=== PATIENT | female | born 1955 | race Caucasian/White ===

== ENCOUNTER → 2016-07-30 | Outpatient (CLI) | payer BC | LOC: MC.RAD 11:11 | DX: Z12.31 Encounter for screening mammogram for malignant neoplasm of breast (principal) ==

== ENCOUNTER → 2017-10-04 | Outpatient (CLI) | payer BC | LOC: MC.RAD 09-12 13:40 | DX: Z12.31 Encounter for screening mammogram for malignant neoplasm of breast (principal) ==

== ENCOUNTER → 2018-10-30 | Outpatient (CLI) | payer BC | LOC: MC.RAD 08:00 | DX: Z12.31 Encounter for screening mammogram for malignant neoplasm of breast (principal) ==

== ENCOUNTER → 2020-01-13 | Outpatient (CLI) | payer BC | LOC: MC.RAD 14:32 | DX: Z12.31 Encounter for screening mammogram for malignant neoplasm of breast (principal); N64.89 Other specified disorders of breast ==

== ENCOUNTER → 2020-01-19 | Outpatient (CLI) | payer BC | LOC: MC.RAD 13:50 | DX: Z12.31 Encounter for screening mammogram for malignant neoplasm of breast (principal) ==

== ENCOUNTER → 2021-01-20 | Outpatient (CLI) | payer BC | LOC: MC.RAD 07:30 | DX: Z12.31 Encounter for screening mammogram for malignant neoplasm of breast (principal) ==

== ENCOUNTER 2021-06-01 09:30 | Outpatient (RCR) | payer MEDICARE, OTHER, BC | END 2021-06-01 13:47 | disposition home or self-care (01) | LOC: MKS.ESL.PT 09:30 | DX: M47.26 Other spondylosis with radiculopathy, lumbar region (principal); M47.817 Spondylosis without myelopathy or radiculopathy, lumbosacral region; M51.16 Intervertebral disc disorders with radiculopathy, lumbar region; M51.27 Other intervertebral disc displacement, lumbosacral region; M48.061 Spinal stenosis, lumbar region without neurogenic claudication; M48.07 Spinal stenosis, lumbosacral region ==

== ENCOUNTER → 2022-02-07 | Outpatient (CLI) | payer MEDICARE, OTHER | LOC: MC.RAD 08:00 | DX: Z12.31 Encounter for screening mammogram for malignant neoplasm of breast (principal); N64.89 Other specified disorders of breast ==

== ENCOUNTER → 2022-02-22 | Outpatient (CLI) | payer MEDICARE, OTHER | LOC: MC.RAD 14:00 | DX: N63.20 Unspecified lump in the left breast, unspecified quadrant (principal); N64.59 Other signs and symptoms in breast ==

== ENCOUNTER 2022-06-11 11:04 | Day surgery (SDC) | payer MEDICARE, OTHER ==
[~2022-06-11] VITALS: Ht 157.5 cm; Wt 68.2 kg
[2022-06-11 11:30] LABS: BASO % 0.4 % (0.0-2.0); EOS # 0.1 K/mm3 (0.0-0.7); EOS % 0.7 % (0.0-4.0); GRAN # 7.1 K/mm3 (1.4-6.5); GRAN % 77.8 % (42.2-75.2); HEMATOCRIT 37.9 % (37.0-47.0); HEMOGLOBIN 12.5 g/dl (12.5-16.0); LYMPH # 1.4 K/mm3 (1.2-3.4); LYMPH % 15.7 % (20.0-51.0); MEAN CELL VOLUME 88 fl (80.0-100.0); MEAN CORPUSCULAR HEMOGLOBIN 29 pg (27-31); MEAN CORPUSCULAR HGB CONC 33 g/dl (33.0-37.0); MEAN PLATELET VOLUME 10.4 fl (7.4-10.4); MONO # 0.4 K/mm3 (0.1-0.6); MONO % 4.6 % (1.7-9.3); PLATELET COUNT 228 K/mm3 (130-400); RED BLOOD COUNT 4.31 M/mm3 (4.10-5.30); REDCELL DISTRIBUTION WIDTH-CV 12.9 % (11.5-14.5)
[2022-06-11 11:58] LABS: COLLECTION METHOD CLEAN CATCH
[2022-06-11 12:12] LABS: PH 5.5 (5.0-8.5); URINE APPEARANCE Clear (CLEAR/HAZY); URINE BLOOD Negative (NEGATIVE); URINE COLOR Yellow (YELLOW); URINE GLUCOSE Negative (NEGATIVE); URINE KETONE TRACE (NEGATIVE); URINE NITRATE Negative (NEGATIVE); URINE PROTEIN(semi-quant) Negative (NEGATIVE); URINE UROBILINOGEN 0.2 E.U/dL (0.2-1.0)
[2022-06-11 12:16] LABS: MUCOUS Present (NOT PRESENT); SQUAMOUS EPITHELIAL 0-2 /hpf (0-10); URINE BACTERIA None Seen /hpf (NONE SEEN)
[2022-06-11 12:31] LABS: ALBUMIN 3.6 gm/dL (3.4-4.8); BILIRUBIN,TOTAL 0.3 mg/dL (0.2-1.2); CALCIUM 8.7 mg/dL (8.4-10.2); CREATININE, serum 0.71 mg/dL (0.57-1.11); POTASSIUM 3.7 mmol/L (3.5-4.5); TOTAL PROTEIN 6.6 gm/dL (6.2-8.1)
[2022-06-11] MEDS ORDERED: PYRIDIUM 100MG100 MG PO (17:38)
--- NOTE | 2022-06-11 18:03 | NUR ---
problem with sending pyridium rx electronically. called in as written to preferred pharmacy ([facility]) on behalf of Dr Chawla - verified and will be ready for pt to pickup upon d/c.
[2022-06-11 18:58] VITALS: BP 143/69; PULSE 59; TEMP 97.9
[2022-06-11 19:13] VITALS: BP 145/72; PULSE 66; TEMP 98
[2022-06-11 19:28] VITALS: BP 122/79; PULSE 70
--- NOTE | 2022-06-11 21:11 | NUR ---
REPORT FROM PACU. PATIENT UP TO FLOOR AT 1840. ALERT AND ORIENTED. DENIES PAIN. AMBULATED TO BATHROOM SBA AND VOIDED ORANGE URINE. OUT TO BANKING CONSULTANT PRESCRIPTION. TOLERATED PO FOOD AND FLUID. VSS. IV TO LAC DISCONTINUED, BANDAID APPLIED. DISCHARGED TO HOME WITH VIA WHEELCHAIR AT 2009.
== END 2022-06-11 20:10 | disposition home or self-care (01) ==
LOC: COL.ER 11:04 → SDCO 16:14 → SURG 18:52 → SDCO 20:10
PROVIDERS: Emergency Medicine; Urology
DX: N13.2 Hydronephrosis with renal and ureteral calculous obstruction (principal)
CPT/HCPCS: OP; C1769; J0330; J0696; J1100; J1170; J1885; J2270; J2405; J2704; J3010; J7030; J7120; Q9967